=== PATIENT | female | born 1965 | race American Indian/Alaskan Native ===

== ENCOUNTER 2017-04-22 13:27 | Emergency (ER) | payer OTHER ==
[2017-04-22 13:34] VITALS: BP 182/83; PULSE 73; RESP 18; TEMP 98; O2SAT 99; BMI 30.9
[2017-04-22] MEDS ORDERED: TraMADol/Apap 37.5/325 mg Tab PO STA (13:41)
--- NOTE | 2017-04-22 13:45 | ED PDOC ---
Arrival/HPI - General Chief Complaint: Dental Pain Time Seen by Provider: 04/22/17 13:35 Historian: Patient - History of Present Illness Narrative History of Present Illness (Text): 04/22/17 13:46 51 y.o. female who denies any significant past medical history who comes to the ED because she says that two days ago, she chipped the filling on her lower left molar and since then, she has been having a lot of pain in that tooth and the pain is going up to the left side of the headache. No fever or visual changes or other symptoms. She is tolerating po well. Past Medical History - Tetanus Immunization Tetanus Immunization: Unknown - Musculoskeletal/Rheumatological Hx Falls: No - Psychiatric Hx Depression: No Hx Emotional Abuse: No Hx Physical Abuse: No Hx Substance Use: No - Surgical History Other/Comment: inguinal hernia repair - Suicidal Assessment Feels Threatened In Home Enviroment: No Family/Social History Family/Social History: No Known Family HX Smoking Status: Never Smoked Hx Alcohol Use: No Hx Substance Use: No Hx Substance Use Treatment: No Allergies/Home Meds Allergies/Adverse Reactions: Allergies No Known Allergies Allergy (Verified 04/22/17 13:34) Review of Systems - Review of Systems Constitutional: absent: Fevers Eyes: absent: Vision Changes ENT: Other (dental pain as noted) Neurological: Headache (related to the dental pain) Physical Exam Vital Signs Temp Pulse Resp BP Pulse Ox 04/22/17 13:30 98 F 73 18 182/83 H 99 Temperature: Afebrile Blood Pressure: Hypertensive Pulse: Regular Respiratory Rate: Normal Appearance: Positive for: Well-Appearing, Non-Toxic, Comfortable Pain Distress: Mild Mental Status: Positive for: Alert and Oriented X 3 - Systems Exam Head: Present: Atraumatic, Normocephalic Pupils: Present: PERRL Conjunctiva: Present: Normal Ears: Present: Normal, NORMAL TM, Normal Canal. No: Erythema Mouth: Present: Moist Mucous Membranes, Other (posterior left lower molar with small anterior cavity and swelling at the gums; no facial swelling or erythema. No evidence of abscess in the mouth.) Pharnyx: Present: Normal. No: ERYTHEMA, EXUDATE, TONSILS ENLARGED Nose (External): Present: Atraumatic Neck: Present: Normal Range of Motion, Other (no swelling). No: Meningeal Signs , Lymphadenopathy Medical Decision Making ED Course and Treatment: 04/22/17 13:52 Patient with toothache after part of filling chipped. Exam with some gum swelling but otherwise unremarkable with no facial swelling. Patient's headache started with the chip, so it is not central neurologic in origin. Remainder of exam is unremarkable with no evidence of Lukas's. Patient says her dentist is on vacation this week, and she is travelling to [facility] tomorrow , so she says she will follow up with a dentist in [facility]. Will give first dose of antibiotic here and analgesia and d/c on amoxicillin and naprosyn and ultracet, and she will f/u with dental. Disposition/Present on Arrival - Present on Arrival Any Indicators Present on Arrival: No History of DVT/PE: No History of Uncontrolled Diabetes: No Urinary Catheter: No History of Decub. Ulcer: No History Surgical Site Infection Following: None - Disposition Have Diagnosis and Disposition been Completed?: Yes Diagnosis: Pain, dental Disposition: HOME/ ROUTINE Disposition Time: 13:45 Patient Plan: Discharge Condition: GOOD Discharge Instructions (ExitCare): Toothache (ED) Additional Instructions: Take the antibiotics as prescribed. Follow up with your dentist or a dentist in [facility] in 1-2 days. Return to the emergency department if any new concerning symptoms. Prescriptions: Amoxicillin [Amoxil 500 mg Cap] 1 cap PO TID #30 cap Naproxen [Naprosyn] 500 mg PO BID PRN #30 tab PRN Reason: Pain traMADol/Acetaminophen [Ultracet 325 MG-37.5 MG] 1 tab PO Q8H PRN #15 tab PRN Reason: Pain, Severe (8-10) Referrals: Moris Lei DMD [Non-Staff] - Follow up with primary
== END 2017-04-22 14:10 | disposition home or self-care (01) ==
LOC: ED 13:27
DX: K08.89 Other specified disorders of teeth and supporting structures (principal)